=== PATIENT | female | born 1950 | race Caucasian/White ===

== ENCOUNTER 2018-10-02 09:33 | Outpatient (CLI) | payer OTHER ==
[~2018-10-02] VITALS: Ht 167.6 cm; Wt 85.3 kg
--- NOTE | 2018-10-02 10:44 | GI Initial Consult Note ---
History of Present Illness General Date patient seen: Oct 02, 2018 Time patient seen: 10:40 Referring physician: HMO Reason for Consultation: Abdominal pain Present Illness HPI This is a 68-year-old female patient resents with right upper quadrant abdominal pain with radiation back to the right flank. The patient denies any abdominal pain at this moment, however states that she is been having the pain since May of last year. The patient had recent admission to [facility] and had multiple studies done that were unable to find the etiology of her pain. Denies any unintentional weight loss or changes in dietary habits. No signs of abuse or neglect. Patient is not fall risk. Patient denies any medication use. Allergies: Coded Allergies: No Known Allergies (Unverified , 10/02/18) Patient History Past Medical History: none Past Surgical History: none Social History: Denies: smoking, alcohol use, drug use, other Review of Systems All Other Systems: negative except mentioned in HPI Physical Exam Temperature 98.6 Blood pressure 129/82 63 94% room air Height 5 6 Weight 188.4 pounds Sp02 EP Interpretation: reviewed, normal General Appearance: well appearing, no apparent distress, alert Head: normocephalic EENT: PERRL/EOMI, normal ENT inspection Neck: supple Respiratory: normal breath sounds, no respiratory distress Cardiovascular: normal rate Gastrointestinal: normal inspection, non tender, soft, normal bowel sounds, non -distended Rectal: deferred Genitourinary: no CVA tenderness Musculoskeletal: normal inspection, back normal Neurologic: normal inspection, alert, oriented x3, responsive Psychiatric: normal inspection, judgement/insight normal, memory normal Skin: normal inspection, normal color, no rash, warm/dry, palpation normal, well hydrated Lymphatic: normal inspection, no adenopathy GI: Plan Problems: (1) Abdominal pain (2) Cholelithiasis (3) Pancreatitis (4) Cholecystitis (5) Encounter for diagnostic endoscopy Plan Endoscopic ultrasound to be scheduled pending PA, will contact patient. - NPO @ [place] day prior procedure explained. Will follow with additional recs post procedure. Seen with Dr. Hawk. Thank you for this patient referral. The patient was seen and examined at bedside and all new and available data was reviewed in the patients chart. I agree with the above findings, impression and plan. (Patient seen earlier today. Signature stamp does not reflect patient encounter time.). - MD Margarita Dem[facility]coS[facility] RODRIG[facility] Oct 02, 2018 10:44
[2018-10-02 14:29] VITALS: BP 127/82
== END 2018-10-02 10:03 | disposition home or self-care (01) ==
LOC: PAN 09:33
DX: R10.11 Right upper quadrant pain (principal); K80.20 Calculus of gallbladder without cholecystitis without obstruction; K85.90 Acute pancreatitis without necrosis or infection, unspecified
CPT/HCPCS: 99202

== ENCOUNTER 2018-12-07 07:00 | Day surgery (SDC) | payer MEDICARE ==
[2018-12-07] VITALS (11 sets, daily range): BP systolic 114–162; BP diastolic 74–96
[~2018-12-07] VITALS: Ht 167.6 cm; Wt 86.6 kg
[2018-12-07] MEDS ORDERED: Succinylcholine 20mg/ml 10ml vial ONE (08:29)
[2018-12-07] MEDS ORDERED: fentaNYL 100 mcg/2 mL IV ONE ×2 (08:29→09:00)
--- NOTE | 2018-12-07 08:39 | Anethesia Preoperative Eval ---
Anesthesia Pre-op PMH/ROS General Date of Evaluation: Dec 07, 2018 Time of Evaluation: 08:35 ASA Score: ASA 2 Mallampati Score Class I : Soft palate, uvula, fauces, pillars visible Class II: Soft palate, uvula, fauces visible Class III: Soft palate, base of uvula visible Class IV: Only hard plate visible Mallampati Classification: Class II Surgeon: Kenn Diagnosis: Cholelisthesis, cholecystitis, Surgical Procedure: EGD, EUS Anesthesia History: none Social History: smoking Family History: no anesthesia problems Allergies: Coded Allergies: No Known Allergies (Unverified , 10/02/18) Medications: see eMAR Patient NPO?: Yes NPO Date: Dec 07, 2018 NPO Time: 00:00 Past Medical History Cardiovascular: Denies: HTN, CAD, CA, valve dz, arrhythmia, other Pulmonary: Denies: asthma, COPD, STEPHAN, other Gastrointestinal/Genitourinary: Reports: other - Cholelisthisasis, cholecysitis , pancreatitis; Denies: GERD, CRI, ESRD Neurologic/Psychiatric: Denies: dementia, CVA, depression/anxiety, TIA, other Endocrine: Denies: DM, hypothyroidism, steroids, other HEENT: Reports: CHILKAT (L), CHILKAT (R); Denies: cataract (L), cataract (R), glaucoma, other Hematology/Immune: Denies: anemia, DVT, bleeding disorder, other Musculoskeletal/Integumentary: Reports: OA; Denies: RA, DJD, DDD, edema, other Other: obesity PMH Narrative: as noted above PSxH Narrative: LEFT knee arthroscopy, lap derrick Anesthesia Pre-op Phys. Exam Physician Exam Last Vital Signs Date Time Temp Pulse Resp B/P (MAP) Pulse Ox O2 Delivery O2 Flow Rate FiO2 12/07/18 07:47 Room Air 12/07/18 07:43 60 154/74 12/07/18 07:27 97.5 12/07/18 07:25 14 98 Constitutional: NAD Neurologic: other Cardiovascular: RRR Respiratory: CTA Gastrointestinal: S/NT/ND Airway Exam Mallampati Score: Class II Neck: FROM TMD: > 3 FB ROM: full Teeth: intact Dentures: no upper, no lower Anesthesia Pre-op A/P Studies Pre-op Studies: EKG - SB, low voltage, borderline EKG Risk Assessment & Plan Assessment: ASA 2, ok to proceed Plan: MAC Status Change Before Surgery: No Pre-Antibiotics Given Within 1 Hr of Incision: Matilde Santoyo CRNA Dec 07, 2018 08:39
[2018-12-07] MEDS ORDERED: Propofol 200mg/20ml IV ONE (09:00)
--- NOTE | 2018-12-07 09:03 | Short Stay Surgery H&P ---
History of Present Illness History of Present Illness Chief Complaint see recent office note HPI Judy Paul is a 68 year old female who was admitted on for Abdominal Pain Patient History Allergies: Coded Allergies: No Known Allergies (Unverified , 10/02/18) Physical Exam Vital Signs Last Vital Signs Date Time Temp Pulse Resp B/P (MAP) Pulse Ox O2 Delivery O2 Flow Rate FiO2 12/07/18 07:47 Room Air 12/07/18 07:43 60 154/74 12/07/18 07:27 97.5 12/07/18 07:25 14 98 Plan Attestation Are the patient's medical conditions optimized for surgery? Aguilar Hawk MD Dec 07, 2018 09:03
--- NOTE | 2018-12-07 09:03 | Pre-Procedure Note/Attestation ---
Pre-Procedure Note/Attestation Complete Prior to Procedure Planned Procedure: not applicable Procedure Narrative: egd/eus Indications for Procedure Pre-Operative Diagnosis: pancreatitis Attestation I attest that I discussed the nature of the procedure; its benefits; risks and complications; and alternatives (and the risks and benefits of such alternatives ), prior to the procedure, with the patient (or the patient's legal guest service representative). I attest that, if there was a reasonable possibility of needing a blood transfusion, the patient (or the patient's legal guest service representative) was given the [facility] standardized written summary, pursuant to the [place] Blood Safety Act ([place] Health and Safety Code # 1645, as amended). I attest that I re-evaluated the patient just prior to the surgery and that there has been no change in the patient's H&P, except as documented below: Aguilar Hawk MD Dec 07, 2018 09:03
--- NOTE | 2018-12-07 09:33 | Endoscopy Procedure Note ---
Endoscopy Procedure Note General Indication for Procedure: abd pain, pancreatitis Procedures Performed: EGD, other - EUS Operative Findings/Diagnosis: HH, gastritis, dilated CBD Specimen: yes Pt Tolerated Procedure Well: Yes Estimated Blood Loss: none Anesthesia Anesthesiologist: eder Anesthesia: MAC Inserted Devices Implant(s) used?: No GI Core Measures 50 yrs or older w/o bx or poly: Not Applicable 10yrs. F/U not recommended: Not Applicable Aguilar Hawk MD Dec 07, 2018 09:33
--- NOTE | 2018-12-07 09:43 | Immediate Post-Op Evaluation ---
Immediate Post-Op Evalulation Immediate Post-Op Evalulation Procedure: EGD, EUS Date of Evaluation: Dec 07, 2018 Time of Evaluation: 09:35 IV Fluids: 0.9 NS 500 ml Blood Pressure Systolic: 141 Blood Pressure Diastolic: 82 Pulse Rate: 62 Respiratory Rate: 20 O2 Sat by Pulse Oximetry: 100 Temperature (Fahrenheit): 98.1 Pain Score (1-10): 0 Nausea: No Vomiting: No Complications none Patient Status: awake, reacts, patent Hydration Status: adequate Given Within 1 Hr of Incision: Matilde Santoyo CRNA Dec 07, 2018 09:43
--- NOTE | 2018-12-07 12:52 | 48 Hour Post Anesthesia Eval ---
Post Anesthesia Evaluation Procedure: EGD, EUS Date of Evaluation: Dec 07, 2018 Time of Evaluation: 12:51 Blood Pressure Systolic: 140 0: 76 Pulse Rate: 51 Respiratory Rate: 16 Temperature (Fahrenheit): 98 O2 Sat by Pulse Oximetry: 98 Airway: patent Nausea: No Vomiting: No Pain Intensity: 0 Hydration Status: adequate Cardiopulmonary Status: stable Mental Status/LOC: patient returned to baseline Follow-up Care/Observations: per GI Post-Anesthesia Complications: none Follow-up care needed: N/A Matilde Núñez CRNA Dec 07, 2018 12:52
--- NOTE | 2018-12-07 17:15 | Procedure Note ---
DATE OF PROCEDURE: 12/07/2018 SURGEON: Aguilar Hawk M.D. PROCEDURE: Upper endoscopy with biopsy and endoscopic ultrasound. ANESTHESIA: Per Matilde JENSEN. INSTRUMENT: Olympus adult flexible upper endoscope and EUS scope. INDICATIONS: Abdominal pain, history of upper GI bleeding, pancreatitis, and dilated common bile duct. REASON FOR PROCEDURE: The procedure, risks, benefits, and possible consequences, including hemorrhage, aspiration, perforation and infection, and alternative treatments, were explained to the patient/legal guardian by Dr. Aguilar Hawk and the patient/legal guardian understood and accepted these risks. PROCEDURE IN DETAIL: After informed consent was obtained and the patient was adequately sedated, Olympus upper endoscope was advanced from the mouth into the second portion of duodenum and retroflexion was performed in the stomach. The patient has evidence of large hiatal hernia with evidence of Chandrakant ulcerations. In the antrum, there was a questionable watermelon shaped antrum suspicious for GAVE, which was biopsied. At this time, the upper endoscope was retrieved and EUS scope was introduced. Starting scanning at GE junction, showed evidence of celiac axis without any obvious celiac axis adenopathy. Pancreatic parenchyma in the body and tail looked okay. No obvious pancreatic duct dilatation. No pancreatic cyst was seen in the body or tail. Then, the scope was advanced to the duodenal bulb and second portion of the duodenum where the pancreatic head, common bile duct and uncinate process was carefully examined. The patient had history of cholecystectomy. Common bile duct was dilated to maximum dilation about 1 cm. No obvious stone or filling defect was seen in the distal common bile duct. The patient had history of sphincterotomy. No obvious pancreatic head mass was also seen. SUMMARY OF FINDINGS: 1. 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 2. Antral gastritis suspicious for GAVE, status post biopsy. 3. Dilated common bile duct to about 1 cm without any filling defect. 4. The patient had history of cholecystectomy. RECOMMENDATIONS: Follow up biopsy results and treat accordingly. The patient will benefit from PPI daily given this Chandrakant ulcerations. At this time, I do not see the patient needs any further workup for the pancreatobiliary. Apparently, the patient had ERCP. Common bile duct has from 1.8 to 1.9 per prior reports not to about 1 cm. There was no obvious stone. The patient has a cholecystectomy. No obvious pancreatitis. No pancreatic cyst, so we will monitor the patient. We will recommend observation. Aguilar Hawk M.D. DR: SAIMA JOB#: [id number] CC:
== END 2018-12-07 10:50 | disposition home or self-care (01) ==
LOC: GAS 07:00
DX: R10.9 Unspecified abdominal pain (principal); K44.9 Diaphragmatic hernia without obstruction or gangrene; K27.9 Peptic ulcer, site unspecified, unspecified as acute or chronic, without hemorrhage or perforation; Z90.49 Acquired absence of other specified parts of digestive tract; M19.90 Unspecified osteoarthritis, unspecified site; K29.50 Unspecified chronic gastritis without bleeding
CPT/HCPCS: 43239; 43259; 93005; J0330; J0360; J2704; J3010; 94003; 94150

== ENCOUNTER 2019-01-03 13:05 | Outpatient (CLI) | payer MEDICARE ==
[2019-01-03 13:20] VITALS: BP 175/95
[2019-01-03 13:25] VITALS: BP 161/94
[2019-01-03 13:30] VITALS: BP 161/81
--- NOTE | 2019-01-03 13:38 | General Progress Note ---
Assessment/Plan Problem List: (1) Large hiatal hernia ICD Codes: K44.9 - Diaphragmatic hernia without obstruction or gangrene SNOMED: 44019321 (2) Chandrakant ulcer ICD Codes: K25.9 - Gastric ulcer, unspecified as acute or chronic, without hemorrhage or perforation SNOMED: 868744923 (3) Dilated cbd, acquired ICD Codes: K83.8 - Other specified diseases of biliary tract SNOMED: 235558647 (4) Hx of cholecystectomy ICD Codes: Z90.49 - Acquired absence of other specified parts of digestive tract SNOMED: 41094233, 918903030 (5) Abdominal pain ICD Codes: R10.9 - Unspecified abdominal pain SNOMED: 01567021 Assessment/Plan: ppi daily RTC prn Subjective ROS Limited/Unobtainable: Yes Allergies: Coded Allergies: No Known Allergies (Unverified , 10/02/18) Subjective right Flank pain Objective General Appearance: alert EENT: normal ENT inspection Neck: supple Cardiovascular: normal rate Respiratory/Chest: lungs clear Abdomen: normal bowel sounds, non tender, soft Extremities: non-tender Aguilar Hawk MD January 03, 2019 13:38
[2019-01-03] MEDS ORDERED: VISTARIL50 MG ORAL (15:02)
== END 2019-01-03 15:52 | disposition home or self-care (01) ==
LOC: PAN 13:05
DX: K44.9 Diaphragmatic hernia without obstruction or gangrene (principal); K25.9 Gastric ulcer, unspecified as acute or chronic, without hemorrhage or perforation; K83.8 Other specified diseases of biliary tract; Z90.49 Acquired absence of other specified parts of digestive tract; R10.9 Unspecified abdominal pain